=== PATIENT | female | born 2000 | race Caucasian/White ===

== ENCOUNTER → 2021-02-10 | Day surgery (SDC) | payer OTHER ==
[~2021-02-10] MED LIST: HYDROCODON-ACE1 EAC6 PO; IBUPROFEN600 MG PO
[2021-02-10 07:21] LABS: HEMOGLOBIN 13.4 gm/dl (12.3-15.3); RED BLOOD COUNT 5.16 M/UL (4.00-5.10); WHITE BLOOD COUNT 9.7 K/UL (4.5-11.0)
== END | disposition home or self-care (01) ==
LOC: OR 06:46
PROVIDERS: Obstetrics & Gynecology
DX: N75.0 Cyst of Bartholin's gland (principal); Z86.16 Personal history of COVID-19; Z88.0 Allergy status to penicillin; Z88.8 Allergy status to other drugs, medicaments and biological substances
CPT/HCPCS: 36415; 84702; 85025; J1100; J2001; J2250; J2405; J2704; J2795; J3010; J7120